=== PATIENT | male | born 1940 | race Caucasian/White ===

== ENCOUNTER 2024-09-28 10:37 | Outpatient (CLI) | payer MEDICARE, BC | END 2024-09-28 10:38 | disposition home or self-care (01) | LOC: SCSRAD 10:37 | PROVIDERS: ATTEND Family Medicine | DX: M25.551 Pain in right hip (principal); M16.11 Unilateral primary osteoarthritis, right hip; E11.9 Type 2 diabetes mellitus without complications | CPT/HCPCS: 36415; 83036 ==